=== PATIENT | female | born 1980 | race Caucasian/White ===

== ENCOUNTER 2024-08-05 09:20 | Emergency (ER) | payer MEDICAID, MEDICARE | END 2024-08-05 12:35 | disposition home or self-care (01) | LOC: JP.ED 09:20 | DX: F32.A Depression, unspecified (principal); J44.9 Chronic obstructive pulmonary disease, unspecified; F17.210 Nicotine dependence, cigarettes, uncomplicated | CPT/HCPCS: 99284 ==